=== PATIENT | male | born 1930 | race Caucasian/White ===

== ENCOUNTER 2017-10-25 20:25 | Inpatient (IN) | payer OTHER ==
[~2017-10-25] VITALS: Ht 180.3 cm; Wt 63.5 kg
[2017-10-25] MEDS ORDERED: IBUP400 PO (20:37)
[2017-10-25] MEDS ORDERED: TAMS.4ER PO (20:37)
[2017-10-26 00:58] LABS: BASOPHILS ABSOLUTE AUTO 0.05 K/mm3 (0.00-0.23); BASOPHILS PERCENT AUTO 1 % (0-2); EOSINOPHILS ABSOLUTE AUTO 0.06 K/mm3 (0.00-0.68); EOSINOPHILS PERCENT AUTO 1 % (0-6); Hematocrit 32.8 % (37.0-53.0); Hemoglobin 10.9 g/dL (13.5-17.5); IMMATURE GRAN ABSOLUTE AUTO 0.02 K/mm3 (0.00-0.10); IMMATURE GRAN PERCENT AUTO 0 % (0-1); LYMPHOCYTES ABSOLUTE AUTO 1.42 K/mm3 (0.84-5.20); LYMPHOCYTES PERCENT AUTO 16 % (21-46); MONOCYTES ABSOLUTE AUTO 0.69 K/mm3 (0.16-1.47); MONOCYTES PERCENT AUTO 8 % (4-13); Mean Corpuscular HGB 32.6 pg (26.0-34.0); Mean Corpuscular HGB Conc 33.2 g/dL (31.5-36.5); Mean Corpuscular Volume 98 fL (80-100); Mean Platelet Volume 8.5 fL (9.1-12.4); NEUTROPHILS ABSOLUTE AUTO 6.74 K/mm3 (1.96-9.15); NEUTROPHILS PERCENT AUTO 75 % (41-73); Platelet Count 163 K/mm3 (150-400); RDW Coefficient Variation 12.9 % (11.7-14.2); RDW Standard Deviation 46.2 fL (35.1-46.3); Red Blood Cell Count 3.34 M/mm3 (4.30-5.90); White Blood Cell Count 8.98 K/mm3 (4.00-11.30)
[2017-10-26 01:16] LABS: Albumin, Blood 3.6 g/dL (3.4-5.0); Albumin/Globulin Ratio 1.1 (0.8-1.8); Bilirubin, Total 0.6 mg/dL (0.1-1.0); Bun/Creatinine Ratio 15.9 (12.0-20.0); Calcium, Blood 8.7 mg/dL (8.5-10.1); Creatinine, Blood 1.45 mg/dL (0.60-1.20); Globulin, Blood 3.4 g/dL (2.2-4.0); Potassium, Blood 4.5 mmol/L (3.5-5.5)
[2017-10-26 09:17] LABS: International Normalized Ratio 1.04; Prothrombin Time Results 10.7 Sec (9.7-11.5)
[2017-10-27 04:27] LABS: BASOPHILS ABSOLUTE AUTO 0.02 K/mm3 (0.00-0.23); BASOPHILS PERCENT AUTO 0 % (0-2); EOSINOPHILS ABSOLUTE AUTO 0.17 K/mm3 (0.00-0.68); EOSINOPHILS PERCENT AUTO 3 % (0-6); Hemoglobin 8.7 g/dL (13.5-17.5); IMMATURE GRAN ABSOLUTE AUTO 0.01 K/mm3 (0.00-0.10); IMMATURE GRAN PERCENT AUTO 0 % (0-1); LYMPHOCYTES ABSOLUTE AUTO 0.78 K/mm3 (0.84-5.20); LYMPHOCYTES PERCENT AUTO 14 % (21-46); MONOCYTES ABSOLUTE AUTO 0.38 K/mm3 (0.16-1.47); MONOCYTES PERCENT AUTO 7 % (4-13); Mean Corpuscular HGB 32.5 pg (26.0-34.0); Mean Corpuscular HGB Conc 33.5 g/dL (31.5-36.5); Mean Corpuscular Volume 97 fL (80-100); Mean Platelet Volume 8.8 fL (9.1-12.4); NEUTROPHILS ABSOLUTE AUTO 4.11 K/mm3 (1.96-9.15); NEUTROPHILS PERCENT AUTO 75 % (41-73); Platelet Count 136 K/mm3 (150-400); RDW Standard Deviation 45.7 fL (35.1-46.3); Red Blood Cell Count 2.68 M/mm3 (4.30-5.90); White Blood Cell Count 5.47 K/mm3 (4.00-11.30)
[2017-10-28 04:43] LABS: BASOPHILS ABSOLUTE AUTO 0.03 K/mm3 (0.00-0.23); BASOPHILS PERCENT AUTO 1 % (0-2); EOSINOPHILS ABSOLUTE AUTO 0.23 K/mm3 (0.00-0.68); EOSINOPHILS PERCENT AUTO 4 % (0-6); Hematocrit 25.6 % (37.0-53.0); Hemoglobin 8.4 g/dL (13.5-17.5); IMMATURE GRAN ABSOLUTE AUTO 0.03 K/mm3 (0.00-0.10); IMMATURE GRAN PERCENT AUTO 1 % (0-1); LYMPHOCYTES ABSOLUTE AUTO 1.07 K/mm3 (0.84-5.20); LYMPHOCYTES PERCENT AUTO 20 % (21-46); MONOCYTES ABSOLUTE AUTO 0.41 K/mm3 (0.16-1.47); MONOCYTES PERCENT AUTO 8 % (4-13); Mean Corpuscular HGB 31.3 pg (26.0-34.0); Mean Corpuscular HGB Conc 32.8 g/dL (31.5-36.5); Mean Corpuscular Volume 96 fL (80-100); Mean Platelet Volume 8.8 fL (9.1-12.4); NEUTROPHILS ABSOLUTE AUTO 3.71 K/mm3 (1.96-9.15); NEUTROPHILS PERCENT AUTO 68 % (41-73); Platelet Count 132 K/mm3 (150-400); RDW Coefficient Variation 12.8 % (11.7-14.2); RDW Standard Deviation 44.6 fL (35.1-46.3); Red Blood Cell Count 2.68 M/mm3 (4.30-5.90); White Blood Cell Count 5.48 K/mm3 (4.00-11.30)
[2017-10-28] MEDS ORDERED: CYCL10 PO (11:24)
[2017-10-28] MEDS ORDERED: HYDR1TAB94 PO (11:24)
== END 2017-10-28 14:43 | DRG 482 ==
LOC: ER 20:25 → MEDS 10-26 00:35 → SURS 10-26 00:56 → MEDS 10-26 01:05 → SURS 10-26 14:34
PROVIDERS: Emergency Medicine; Orthopaedic Surgery
PROC: 0QS736Z Reposition Left Upper Femur with Intramedullary Internal Fixation Device, Percutaneous Approach (ICD-10-PCS; principal; 2017-10-26 12:30)
DX: S72.145A Nondisplaced intertrochanteric fracture of left femur, initial encounter for closed fracture (principal); R55 Syncope and collapse; I10 Essential (primary) hypertension; I25.10 Atherosclerotic heart disease of native coronary artery without angina pectoris; N40.1 Benign prostatic hyperplasia with lower urinary tract symptoms; R33.8 Other retention of urine; D64.9 Anemia, unspecified; Z79.899 Other long term (current) drug therapy; W19.XXXA Unspecified fall, initial encounter; Y93.H2 Activity, gardening and landscaping; Z95.1 Presence of aortocoronary bypass graft; Z87.891 Personal history of nicotine dependence; Y92.007 Garden or yard of unspecified non-institutional (private) residence as the place of occurrence of the external cause
CPT/HCPCS: 36415; 71045; 72192; 73501; 73552; 80053; 85025; 85610; 85730; 93005; 93010; 97110; 97116; 97162; 97165; 97530; 97535; 99285; C1713; C1769; G8978; G8979; G8987; G8988; J0690; J1650; J1885; J2250; J3010; J7030; J7120

== ENCOUNTER 2017-11-03 17:00 | Emergency (ER) | payer OTHER ==
[~2017-11-03] VITALS: Ht 180.3 cm; Wt 66.7 kg
[~2017-11-03 17:00] MED LIST: CYCL10 PO; HYDR1TAB94 PO; IBUP400 PO; TAMS.4ER PO
[2017-11-03] MEDS ORDERED: DONE10 PO (17:19)
[2017-11-03 17:32] LABS: BASOPHILS ABSOLUTE AUTO 0.03 K/mm3 (0.00-0.23); BASOPHILS PERCENT AUTO 0 % (0-2); EOSINOPHILS ABSOLUTE AUTO 0.14 K/mm3 (0.00-0.68); EOSINOPHILS PERCENT AUTO 2 % (0-6); Hematocrit 27.5 % (37.0-53.0); IMMATURE GRAN ABSOLUTE AUTO 0.04 K/mm3 (0.00-0.10); IMMATURE GRAN PERCENT AUTO 1 % (0-1); LYMPHOCYTES ABSOLUTE AUTO 1.18 K/mm3 (0.84-5.20); LYMPHOCYTES PERCENT AUTO 16 % (21-46); MONOCYTES ABSOLUTE AUTO 0.61 K/mm3 (0.16-1.47); MONOCYTES PERCENT AUTO 8 % (4-13); Mean Corpuscular HGB 32.3 pg (26.0-34.0); Mean Corpuscular HGB Conc 32.7 g/dL (31.5-36.5); Mean Platelet Volume 8.5 fL (9.1-12.4); NEUTROPHILS PERCENT AUTO 73 % (41-73); Platelet Count 243 K/mm3 (150-400); RDW Coefficient Variation 12.6 % (11.7-14.2); RDW Standard Deviation 45.5 fL (35.1-46.3); Red Blood Cell Count 2.79 M/mm3 (4.30-5.90)
[2017-11-03 17:34] LABS: Mean Corpuscular Volume 99 fL (80-100)
[2017-11-03 17:55] LABS: Albumin, Blood 3.3 g/dL (3.4-5.0); Albumin/Globulin Ratio 0.8 (0.8-1.8); Bilirubin, Total 0.5 mg/dL (0.1-1.0); Bun/Creatinine Ratio 19.6 (12.0-20.0); Calcium, Blood 8.9 mg/dL (8.5-10.1); Creatinine, Blood 1.58 mg/dL (0.60-1.20); Potassium, Blood 4.6 mmol/L (3.5-5.5); Total Protein, Blood 7.3 g/dL (6.4-8.2)
[2017-11-03 19:12] LABS: Source, Urine Clean Catch
[2017-11-03 19:15] LABS: Bilirubin, Urine Neg (Neg); Blood, Urine Neg (Neg); Glucose Qualitative, Urine Neg (Neg); Ketones, Urine Neg (Neg); Leukocyte Esterase, Urine 2+ (Neg); Nitrite, Urine Neg (Neg); Protein, Urine Neg (Neg); Specific Gravity, Urine 1.005 (1.003-1.022); Urobilinogen, Urine NORM (Normal)
[2017-11-03 19:21] LABS: Appearance, Urine Clear (Clear); Color, Urine Yellow (P-Yellow)
[2017-11-03 19:26] LABS: Bacteria Few /hpf; Red Blood Cells, Urine 0-2 /hpf (0-2); Renal Epithelial Few /hpf (0-Rare); Squamous Epithelial Cells Few /hpf (Few); Transitional Epithelial Cells Few /hpf (0-Rare); White Blood Cells, Urine 25-50 /hpf (0-5)
[2017-11-03] MEDS ORDERED: CEPH500 PO (19:38)
== END 2017-11-03 20:00 | disposition home or self-care (01) ==
LOC: ER 17:00
PROVIDERS: Emergency Medicine
DX: F03.90 Unspecified dementia, unspecified severity, without behavioral disturbance, psychotic disturbance, mood disturbance, and anxiety (principal); Z79.899 Other long term (current) drug therapy; D64.9 Anemia, unspecified; I10 Essential (primary) hypertension; Z87.891 Personal history of nicotine dependence
CPT/HCPCS: 36415; 80053; 81000; 81001; 85025; 99284

== ENCOUNTER 2018-04-24 14:04 | Emergency (ER) | payer OTHER ==
[~2018-04-24] VITALS: Ht 180.3 cm; Wt 63.5 kg
[~2018-04-24 14:04] MED LIST changes: +CEPH500 PO; +DONE10 PO
[2018-04-24] MEDS ORDERED: Sulfamethoxazo1 EAC4 PO (14:18)
[2018-04-24] MEDS ORDERED: LEVSOD50 PO (14:18)
[2018-04-24 15:27] LABS: Source, Urine Clean Catch
[2018-04-24 15:32] LABS: BASOPHILS ABSOLUTE AUTO 0.03 K/mm3 (0.00-0.23); BASOPHILS PERCENT AUTO 1 % (0-2); EOSINOPHILS ABSOLUTE AUTO 0.06 K/mm3 (0.00-0.68); EOSINOPHILS PERCENT AUTO 1 % (0-6); Hematocrit 26.8 % (37.0-53.0); Hemoglobin 8.8 g/dL (13.5-17.5); IMMATURE GRAN ABSOLUTE AUTO 0.06 K/mm3 (0.00-0.10); IMMATURE GRAN PERCENT AUTO 1 % (0-1); LYMPHOCYTES ABSOLUTE AUTO 0.93 K/mm3 (0.84-5.20); LYMPHOCYTES PERCENT AUTO 19 % (21-46); MONOCYTES ABSOLUTE AUTO 0.25 K/mm3 (0.16-1.47); MONOCYTES PERCENT AUTO 5 % (4-13); Mean Corpuscular HGB 32.2 pg (26.0-34.0); Mean Corpuscular HGB Conc 32.8 g/dL (31.5-36.5); Mean Corpuscular Volume 98 fL (80-100); NEUTROPHILS ABSOLUTE AUTO 3.49 K/mm3 (1.96-9.15); NEUTROPHILS PERCENT AUTO 73 % (41-73); Platelet Count 186 K/mm3 (150-400); RDW Coefficient Variation 13.7 % (11.7-14.2); Red Blood Cell Count 2.73 M/mm3 (4.30-5.90); White Blood Cell Count 4.82 K/mm3 (4.00-11.30)
[2018-04-24 15:36] LABS: Appearance, Urine Hazy (Clear); Bilirubin, Urine Neg (Neg); Blood, Urine 4+ (Neg); Color, Urine Yellow (P-Yellow); Glucose Qualitative, Urine Neg (Neg); Ketones, Urine Neg (Neg); Leukocyte Esterase, Urine 3+ (Neg); Nitrite, Urine Neg (Neg); Protein, Urine 1+ (Neg); Urobilinogen, Urine NORM (Normal)
[2018-04-24 15:44] LABS: Red Blood Cells, Urine TNTC /hpf (0-2); White Blood Cells, Urine TNTC /hpf (0-5)
[2018-04-24 15:45] LABS: Bacteria Many /hpf; Squamous Epithelial Cells Rare /hpf (Few)
[2018-04-24 15:53] LABS: Albumin, Blood 2.4 g/dL (3.4-5.0); Albumin/Globulin Ratio 0.6 (0.8-1.8); Bilirubin, Total 0.3 mg/dL (0.1-1.0); Bun/Creatinine Ratio 14.9 (12.0-20.0); Calcium, Blood 8.3 mg/dL (8.5-10.1); Creatinine, Blood 1.68 mg/dL (0.60-1.20); Globulin, Blood 3.8 g/dL (2.2-4.0); Potassium, Blood 4.7 mmol/L (3.5-5.5); Total Protein, Blood 6.2 g/dL (6.4-8.2)
[2018-04-24] MEDS ORDERED: CEFD300 PO (16:37)
== END 2018-04-24 17:33 | disposition home or self-care (01) ==
LOC: ER 14:04
PROVIDERS: Emergency Medicine
DX: N39.0 Urinary tract infection, site not specified (principal); E86.0 Dehydration; D64.9 Anemia, unspecified; I10 Essential (primary) hypertension; Z95.1 Presence of aortocoronary bypass graft; Z79.899 Other long term (current) drug therapy; Z87.891 Personal history of nicotine dependence
CPT/HCPCS: 80053; 81001; 85025; 87086; 96361; 96365; 99285-25; J0696; J7120

== ENCOUNTER 2018-04-27 04:35 | Observation (INO) | payer OTHER ==
[~2018-04-27] VITALS: Ht 180.3 cm; Wt 53.5 kg
[~2018-04-27 04:35] MED LIST changes: +CEFD300 PO; +LEVSOD50 PO; +Sulfamethoxazo1 EAC4 PO
[2018-04-27 05:06] LABS: BASOPHILS ABSOLUTE AUTO 0.11 K/mm3 (0.00-0.23); BASOPHILS PERCENT AUTO 1 % (0-2); EOSINOPHILS ABSOLUTE AUTO 0.23 K/mm3 (0.00-0.68); EOSINOPHILS PERCENT AUTO 2 % (0-6); Hematocrit 30.4 % (37.0-53.0); Hemoglobin 9.7 g/dL (13.5-17.5); IMMATURE GRAN ABSOLUTE AUTO 0.07 K/mm3 (0.00-0.10); IMMATURE GRAN PERCENT AUTO 1 % (0-1); LYMPHOCYTES ABSOLUTE AUTO 1.95 K/mm3 (0.84-5.20); LYMPHOCYTES PERCENT AUTO 20 % (21-46); MONOCYTES ABSOLUTE AUTO 0.47 K/mm3 (0.16-1.47); MONOCYTES PERCENT AUTO 5 % (4-13); Mean Corpuscular HGB Conc 31.9 g/dL (31.5-36.5); Mean Corpuscular Volume 100 fL (80-100); NEUTROPHILS PERCENT AUTO 71 % (41-73); Platelet Count 224 K/mm3 (150-400); RDW Coefficient Variation 13.7 % (11.7-14.2); Red Blood Cell Count 3.03 M/mm3 (4.30-5.90); White Blood Cell Count 9.83 K/mm3 (4.00-11.30)
[2018-04-27 05:21] LABS: Source, Urine Clean Catch
[2018-04-27 05:22] LABS: Albumin, Blood 2.9 g/dL (3.4-5.0); Albumin/Globulin Ratio 0.7 (0.8-1.8); Bilirubin, Total 0.4 mg/dL (0.1-1.0); Bun/Creatinine Ratio 13.7 (12.0-20.0); Calcium, Blood 8.8 mg/dL (8.5-10.1); Creatinine, Blood 1.9 mg/dL (0.60-1.20); Globulin, Blood 4.2 g/dL (2.2-4.0); Potassium, Blood 3.9 mmol/L (3.5-5.5); Total Protein, Blood 7.1 g/dL (6.4-8.2)
[2018-04-27 05:28] LABS: Bilirubin, Urine Neg (Neg); Blood, Urine 3+ (Neg); Glucose Qualitative, Urine Neg (Neg); Ketones, Urine Neg (Neg); Leukocyte Esterase, Urine 3+ (Neg); Nitrite, Urine Neg (Neg); Protein, Urine 1+ (Neg); Specific Gravity, Urine 1.005 (1.003-1.022); Urobilinogen, Urine NORM (Normal)
[2018-04-27 05:35] LABS: Appearance, Urine Hazy (Clear); Color, Urine Yellow (P-Yellow)
[2018-04-27 05:37] LABS: White Blood Cells, Urine TNTC /hpf (0-5)
[2018-04-27 05:38] LABS: Bacteria Mod /hpf; Squamous Epithelial Cells Few /hpf (Few)
[2018-04-28 03:40] LABS: BASOPHILS ABSOLUTE AUTO 0.09 K/mm3 (0.00-0.23); BASOPHILS PERCENT AUTO 1 % (0-2); EOSINOPHILS ABSOLUTE AUTO 0.39 K/mm3 (0.00-0.68); EOSINOPHILS PERCENT AUTO 6 % (0-6); Hematocrit 27.4 % (37.0-53.0); Hemoglobin 8.7 g/dL (13.5-17.5); IMMATURE GRAN ABSOLUTE AUTO 0.02 K/mm3 (0.00-0.10); IMMATURE GRAN PERCENT AUTO 0 % (0-1); LYMPHOCYTES ABSOLUTE AUTO 1.81 K/mm3 (0.84-5.20); LYMPHOCYTES PERCENT AUTO 27 % (21-46); MONOCYTES ABSOLUTE AUTO 0.44 K/mm3 (0.16-1.47); MONOCYTES PERCENT AUTO 7 % (4-13); Mean Corpuscular HGB Conc 31.8 g/dL (31.5-36.5); Mean Corpuscular Volume 101 fL (80-100); Mean Platelet Volume 8.5 fL (9.1-12.4); NEUTROPHILS ABSOLUTE AUTO 3.97 K/mm3 (1.96-9.15); NEUTROPHILS PERCENT AUTO 59 % (41-73); Platelet Count 183 K/mm3 (150-400); RDW Standard Deviation 50.8 fL (35.1-46.3); Red Blood Cell Count 2.72 M/mm3 (4.30-5.90); White Blood Cell Count 6.72 K/mm3 (4.00-11.30)
[2018-04-28 04:01] LABS: Albumin, Blood 2.2 g/dL (3.4-5.0); Albumin/Globulin Ratio 0.6 (0.8-1.8); Bilirubin, Total 0.4 mg/dL (0.1-1.0); Bun/Creatinine Ratio 13.5 (12.0-20.0); Calcium, Blood 7.9 mg/dL (8.5-10.1); Creatinine, Blood 1.55 mg/dL (0.60-1.20); Globulin, Blood 3.5 g/dL (2.2-4.0); Potassium, Blood 4.7 mmol/L (3.5-5.5); Total Protein, Blood 5.7 g/dL (6.4-8.2)
[2018-04-29 05:07] LABS: Bun/Creatinine Ratio 20.8 (12.0-20.0); Creatinine, Blood 1.68 mg/dL (0.60-1.20); Potassium, Blood 5.6 mmol/L (3.5-5.5)
[2018-04-30 08:12] LABS: Bun/Creatinine Ratio 27.3 (12.0-20.0); Creatinine, Blood 1.39 mg/dL (0.60-1.20); Potassium, Blood 4.8 mmol/L (3.5-5.5)
== END 2018-05-02 15:06 | disposition home health service (06) ==
LOC: ER 04:35 → ICUW 04:36 → ER 04:36 → ICUW 06:57 → ER 06:57 → MEDS 06:57 → ICUE 06:57 → MEDS 07:49 → ICUW 07:49 → ICUE 08:15 → MEDS 08:15 → ICUE 10:00 → MEDS 04-28 11:05 → ICUE 04-28 11:06 → MEDS 04-28 11:07
PROVIDERS: Emergency Medicine; Hospitalist; Internal Medicine
DX: G92 Toxic encephalopathy (principal); N39.0 Urinary tract infection, site not specified; F03.90 Unspecified dementia, unspecified severity, without behavioral disturbance, psychotic disturbance, mood disturbance, and anxiety; N17.9 Acute kidney failure, unspecified; I25.10 Atherosclerotic heart disease of native coronary artery without angina pectoris; D64.9 Anemia, unspecified; E03.9 Hypothyroidism, unspecified; E86.0 Dehydration; N18.3 Chronic kidney disease, stage 3 (moderate); R64 Cachexia; N40.0 Benign prostatic hyperplasia without lower urinary tract symptoms; T68.XXXA Hypothermia, initial encounter; E46 Unspecified protein-calorie malnutrition; L89.159 Pressure ulcer of sacral region, unspecified stage; E87.5 Hyperkalemia; R53.1 Weakness; Z87.891 Personal history of nicotine dependence; Z79.899 Other long term (current) drug therapy
CPT/HCPCS: 36415; 71045; 80048; 80053; 81001; 82550; 85025; 85027; 87086; 96360; 96361; 96365; 96372; 96376; 97116; 97162; 97165; 97530; 97535; 99285-25; G0378; G8978; G8979; G8987; G8988; J0696; J1650; J7030

== ENCOUNTER 2018-05-06 08:36 | Emergency (ER) | payer OTHER ==
[~2018-05-06] VITALS: Ht 170.2 cm; Wt 56.7 kg
[2018-05-06 09:06] LABS: Source, Urine Clean Catch
[2018-05-06 09:21] LABS: Bilirubin, Urine Neg (Neg); Blood, Urine Neg (Neg); Glucose Qualitative, Urine Neg (Neg); Ketones, Urine Neg (Neg); Leukocyte Esterase, Urine 2+ (Neg); Nitrite, Urine Neg (Neg); Protein, Urine 1+ (Neg); Specific Gravity, Urine 1.005 (1.003-1.022); Urobilinogen, Urine NORM (Normal)
[2018-05-06 09:37] LABS: Appearance, Urine Hazy (Clear); Color, Urine Yellow (P-Yellow)
[2018-05-06 09:40] LABS: Red Blood Cells, Urine 0-2 /hpf (0-2)
[2018-05-06 09:41] LABS: Bacteria Rare /hpf; Squamous Epithelial Cells Rare /hpf (Few)
[2018-05-06 09:42] LABS: Transitional Epithelial Cells Few /hpf (0-Rare)
[2018-05-06 10:00] LABS: Calcium, Ionized (POC) 1.26 mmol/L (1.10-1.46); Chloride (POC) 105 mmol/L (98-108); Creatinine (POC) 1.4 mg/dL (0.8-1.3); Glucose (ISTAT POC) 104 mg/dL (70-99); Hemoglobin (POC) 8.5 g/dL (13.5-17.5); Potassium (POC) 4.1 mmol/L (3.5-5.5); Sodium (POC) 142 mmol/L (135-148); Total CO2 (POC) 27 mmol/L (21-32)
== END 2018-05-06 13:00 | disposition home or self-care (01) ==
LOC: ER 08:36
PROVIDERS: Physician Assistant
DX: M54.5 Low back pain (principal); Z79.899 Other long term (current) drug therapy; D64.9 Anemia, unspecified; I10 Essential (primary) hypertension; F03.90 Unspecified dementia, unspecified severity, without behavioral disturbance, psychotic disturbance, mood disturbance, and anxiety; E03.9 Hypothyroidism, unspecified; Z87.891 Personal history of nicotine dependence
CPT/HCPCS: 36415; 72100; 80047; 81001; 85014; 87077; 87086; 87186; 99284-25

== ENCOUNTER 2018-05-11 08:02 | Observation (INO) | payer OTHER ==
[~2018-05-11] VITALS: Ht 180.3 cm; Wt 54.4 kg
[2018-05-11 09:04] LABS: Source, Urine Clean Catch
[2018-05-11 09:08] LABS: Bilirubin, Urine Neg (Neg); Blood, Urine Neg (Neg); Glucose Qualitative, Urine Neg (Neg); Ketones, Urine Neg (Neg); Leukocyte Esterase, Urine 3+ (Neg); Nitrite, Urine Neg (Neg); Protein, Urine 1+ (Neg); Specific Gravity, Urine 1.015 (1.003-1.022); Urobilinogen, Urine NORM (Normal)
[2018-05-11 09:16] LABS: Appearance, Urine Hazy (Clear); Color, Urine Yellow (P-Yellow)
[2018-05-11 09:17] LABS: Bacteria Rare /hpf; Red Blood Cells, Urine Not Seen /hpf (0-2); Squamous Epithelial Cells Few /hpf (Few); Transitional Epithelial Cells Few /hpf (0-Rare); White Blood Cells, Urine 25-50 /hpf (0-5)
[2018-05-11 09:58] LABS: BASOPHILS ABSOLUTE AUTO 0.04 K/mm3 (0.00-0.23); BASOPHILS PERCENT AUTO 1 % (0-2); EOSINOPHILS ABSOLUTE AUTO 0.19 K/mm3 (0.00-0.68); EOSINOPHILS PERCENT AUTO 5 % (0-6); Hemoglobin 9.2 g/dL (13.5-17.5); IMMATURE GRAN ABSOLUTE AUTO 0.01 K/mm3 (0.00-0.10); IMMATURE GRAN PERCENT AUTO 0 % (0-1); LYMPHOCYTES PERCENT AUTO 26 % (21-46); MONOCYTES ABSOLUTE AUTO 0.35 K/mm3 (0.16-1.47); MONOCYTES PERCENT AUTO 8 % (4-13); Mean Corpuscular HGB 32.2 pg (26.0-34.0); Mean Corpuscular HGB Conc 31.7 g/dL (31.5-36.5); Mean Corpuscular Volume 101 fL (80-100); Mean Platelet Volume 8.3 fL (9.1-12.4); NEUTROPHILS ABSOLUTE AUTO 2.49 K/mm3 (1.96-9.15); NEUTROPHILS PERCENT AUTO 60 % (41-73); Platelet Count 225 K/mm3 (150-400); RDW Standard Deviation 51.5 fL (35.1-46.3); Red Blood Cell Count 2.86 M/mm3 (4.30-5.90); White Blood Cell Count 4.18 K/mm3 (4.00-11.30)
[2018-05-11 10:26] LABS: Alanine Aminotransfer (ALT/SGP 15 U/L (12-78); Albumin, Blood 2.6 g/dL (3.4-5.0); Albumin/Globulin Ratio 0.6 (0.8-1.8); Alk Phos 80 U/L (50-136); Anion Gap 6 mmol/L (6-16); Aspartate Aminotrans (AST/SGOT 13 U/L (12-37); Bilirubin, Total 0.2 mg/dL (0.1-1.0); Blood Urea Nitrogen 26 mg/dL (8-24); Bun/Creatinine Ratio 21.8 (12.0-20.0); CO2, Blood 27 mmol/L (21-32); Calcium, Blood 8.2 mg/dL (8.5-10.1); Chloride, Blood 108 mmol/L (98-108); Creatinine, Blood 1.19 mg/dL (0.60-1.20); Globulin, Blood 4.1 g/dL (2.2-4.0); Glomerular Filtration Rate >60 (60-); Glucose, Blood 76 mg/dL (70-99); Potassium, Blood 4.3 mmol/L (3.5-5.5); Sodium, Blood 141 mmol/L (136-145); Total Protein, Blood 6.7 g/dL (6.4-8.2)
[2018-05-11] MEDS ORDERED: Doxycycline Hy100 MG PO (11:56)
[2018-05-11] MEDS ORDERED: NITR100CA PO (16:12)
[2018-05-11] MEDS ORDERED: CEFD300 PO (16:13)
--- NOTE | 2018-05-11 17:08 | NUR ---
SHIFT SUMMARY PATIENT ARRIVED VIA STRETCHER. 2 PERSON MAX ASSIST FOR TRANSFER. ABLE TO MOVE SELF IN BED. GIVEN FLU VACCINE AND LOVENOX, TOLERATED THIS WELL. NEW IV PLACED BY CHARGE, RN. NO ACUTE CHANGES, CURRENTLY SLEEPING.
--- NOTE | 2018-05-12 06:02 | NUR ---
SHIFT SUMMARY: PATIENT HAS NO COMPLAINTS THIS SHIFT, VS ARE STABLE. IMC. OF A LARGE LOOSE STOOL, ALSO INC OF URINE AT TIMES BUT WILL ASK FOR URINAL TO VOID. ABLE TO MAKE NEEDS KNOWN, BED ALARM IS ON FOR SAFETY.
--- NOTE | 2018-05-12 15:15 | NUR ---
SHIFT SUMMARY PATIENT AMBULATED WITH THERAPY. HE IS AT HIS BASELINE. PATIENT IS CONTEMPLATING GOING TO [facility], HE THINKS AT THIS TIME IN HIS LIFE IT WOULD BE A GOOD DECISION. DR. BALTAZAR IS IN AGREEANCE WITH AN LONGTERM AND ENCOURAGING OF THIS DECISION.
--- NOTE | 2018-05-13 18:35 | NUR ---
PT VERY HARD OF HEARING. SOME C/O GENERAL PAIN MEDICATED PER EMAR. STATES WAITING FOR URINE CX RESULTS BEFORE DISCHARGE. PLAN WILL BE HOME HEALTH FOR DISCHARGE. WILL TRY TO GET INCONTACT AND/OR PASS TO ONCOMING NURSE IF UNABLE TO REACH AGAIN. INCONTINENT. CALL LIGHT IN REACH.
--- NOTE | 2018-05-14 04:44 | NUR ---
SHIFT SUMMARY NO APPARENT ACUTE CHANGES NOTED SO FAR THIS SHIFT. PT WAS INCONTIENT OF STOOL THIS SHIFT AND NOTED TO HAVE SCOOPED THE STOOL OUT OF ATTENDS AND SMEARED ON SELF AND ALL OVER BED. PT SEEMS ALERT AND ORIENTED TO SELF AND WITH SOME CONFUSION. PT ATTEMPTS TO SELF TRANSFER. BED ALARM FOR SAFETY. PT APPEARS TO BE SLEEPING COMFORTABLY AT THIS TIME WITH NO APPARENT SIGNS OF ACUTE DISTRESS. FREQUENT VISUAL CHECKS IT DOES NOT APPEAR THAT PT USES CALL LIGHT APPROPRIATELY. CALL LIGHT IN REACH.
--- NOTE | 2018-05-14 14:43 | NUR ---
PT DISCHARGED HOME WITH [facility] INSPECT[facility]. ESCORTED VIA WHEELCHAIR BY [facility]. ALL BELONGINGS WITH PATIENTS. DISCHARGE INTRUCTIONS EXPLAINED TO PT AND AMPOULE INSPECTOR. ALL QUESTIONS ANSWERED
== END 2018-05-14 12:18 | disposition home or self-care (01) ==
LOC: ER 08:02 → MEDS 08:03
PROVIDERS: Emergency Medicine; ADMIT Internal Medicine
DX: N39.0 Urinary tract infection, site not specified (principal); G93.41 Metabolic encephalopathy; F03.90 Unspecified dementia, unspecified severity, without behavioral disturbance, psychotic disturbance, mood disturbance, and anxiety; I25.10 Atherosclerotic heart disease of native coronary artery without angina pectoris; L89.159 Pressure ulcer of sacral region, unspecified stage; D63.8 Anemia in other chronic diseases classified elsewhere; Z79.899 Other long term (current) drug therapy; Z23 Encounter for immunization
CPT/HCPCS: 36415; 80053; 81001; 84443; 85025; 87077; 87086; 87186; 90686; 96360; 96372; 97116; 97162; 97166; 97530; 99285-25; G0008; G0378; G0515; J1650; J7030

== ENCOUNTER → 2018-08-29 | Outpatient (CLI) | payer OTHER ==
[~2018-08-29] MED LIST changes: +ACET325 PO; +CIPR500 PO; +Doxycycline Hy100 MG PO; +NITR100CA PO; +TUMS500 MG PO
[2018-08-29 14:17] LABS: Source, Urine Clean Catch
[2018-08-29 14:22] LABS: Appearance, Urine Turbid (Clear); Bilirubin, Urine Neg (Neg); Blood, Urine 4+ (Neg); Color, Urine Yellow (P-Yellow); Glucose Qualitative, Urine Neg (Neg); Ketones, Urine Neg (Neg); Leukocyte Esterase, Urine 3+ (Neg); Nitrite, Urine Neg (Neg); Protein, Urine 3+ (Neg); Specific Gravity, Urine 1.015 (1.003-1.022); Urobilinogen, Urine NORM (Normal)
[2018-08-29 14:31] LABS: White Blood Cells, Urine 50-100 /hpf (0-5)
[2018-08-29 14:32] LABS: Bacteria Mod /hpf; Red Blood Cells, Urine 0-2 /hpf (0-2); Squamous Epithelial Cells Rare /hpf (Few)
== END | disposition home or self-care (01) ==
LOC: LAB 14:15 → LAB SHORT 14:15
PROVIDERS: Family Medicine
DX: N39.0 Urinary tract infection, site not specified (principal)
CPT/HCPCS: 81001; 87077; 87086; 87186

== ENCOUNTER 2018-09-06 17:41 | Observation (INO) | payer OTHER ==
[~2018-09-06] VITALS: Ht 180.3 cm; Wt 52.3 kg
[~2018-09-06 17:41] MED LIST changes: -ACET325 PO; -CIPR500 PO; -LEVSOD50 PO; -TAMS.4ER PO; -TUMS500 MG PO
[2018-09-06 18:21] LABS: Source, Urine Catheter
[2018-09-06 18:32] LABS: Appearance, Urine Hazy (Clear); Bilirubin, Urine Neg (Neg); Blood, Urine 4+ (Neg); Color, Urine Yellow (P-Yellow); Glucose Qualitative, Urine Neg (Neg); Ketones, Urine Neg (Neg); Leukocyte Esterase, Urine 3+ (Neg); Nitrite, Urine Neg (Neg); Protein, Urine 2+ (Neg); Specific Gravity, Urine 1.005 (1.003-1.022); Urobilinogen, Urine NORM (Normal)
[2018-09-06 18:48] LABS: Hematocrit 29.5 % (37.0-53.0); Hemoglobin 9.4 g/dL (13.5-17.5); Mean Corpuscular HGB 31.3 pg (26.0-34.0); Mean Corpuscular HGB Conc 31.9 g/dL (31.5-36.5); Mean Corpuscular Volume 98 fL (80-100); Mean Platelet Volume 8.4 fL (9.1-12.4); Platelet Count 327 K/mm3 (150-400); RDW Coefficient Variation 12.2 % (11.7-14.2); RDW Standard Deviation 43.9 fL (35.1-46.3); White Blood Cell Count 8.34 K/mm3 (4.00-11.30)
[2018-09-06 18:57] LABS: Alanine Aminotransfer (ALT/SGP 13 U/L (12-78); Albumin, Blood 2.3 g/dL (3.4-5.0); Albumin/Globulin Ratio 0.5 (0.8-1.8); Alk Phos 84 U/L (50-136); Anion Gap 8 mmol/L (6-16); Aspartate Aminotrans (AST/SGOT 16 U/L (12-37); Bilirubin, Total 0.5 mg/dL (0.1-1.0); Blood Urea Nitrogen 33 mg/dL (8-24); Bun/Creatinine Ratio 16.3 (12.0-20.0); CO2, Blood 24 mmol/L (21-32); Calcium, Blood 8.6 mg/dL (8.5-10.1); Chloride, Blood 102 mmol/L (98-108); Creatinine, Blood 2.02 mg/dL (0.60-1.20); Globulin, Blood 4.8 g/dL (2.2-4.0); Glomerular Filtration Rate 33 (60-); Glucose, Blood 148 mg/dL (70-99); Magnesium, Blood 2.3 mg/dL (1.6-2.4); Potassium, Blood 4.3 mmol/L (3.5-5.5); Sodium, Blood 134 mmol/L (136-145); Total Protein, Blood 7.1 g/dL (6.4-8.2); Troponin I <0.015 ng/mL (0.000-0.040)
[2018-09-06 19:23] LABS: Squamous Epithelial Cells Not Seen /hpf (Few); White Blood Cells, Urine TNTC /hpf (0-5)
[2018-09-06 19:24] LABS: Bacteria Mod /hpf
[2018-09-06 19:35] LABS: BASOPHILS PERCENT MAN 0 % (0-2); EOSINOPHILS ABSOLUTE MAN 0.16 K/mm3 (0.00-0.68); EOSINOPHILS PERCENT MAN 2 % (0-6); LYMPHOCYTES ABSOLUTE MAN 0.58 K/mm3 (0.84-5.20); LYMPHOCYTES PERCENT MAN 7 % (21-46); MONOCYTES ABSOLUTE MAN 0.41 K/mm3 (0.16-1.47); MONOCYTES PERCENT MAN 5 % (4-13); MYELOCYTE ABSOLUTE MAN 0.08 K/mm3 (0.00-0.00); MYELOCYTE PERCENT MAN 1 % (0-0); NEUTROPHILS ABSOLUTE MAN 7.08 K/mm3 (1.96-9.15); SEG NEUTROPHILS PERCENT MAN 85 % (41-73); TOTAL CELLS COUNTED 100
[2018-09-06] MEDS ORDERED: LEVSOD50 PO (19:51)
[2018-09-06] MEDS ORDERED: TAMS.4ER PO (19:51)
[2018-09-06] MEDS ORDERED: CIPR500 PO (19:52)
[2018-09-06] MEDS ORDERED: ACET325 PO (19:53)
[2018-09-06] MEDS ORDERED: TUMS500 MG PO (19:55)
[2018-09-06 20:49] LABS: Creatinine, Urine Random 41.3 mg/dL (27.00-270.00)
[2018-09-07 05:01] LABS: Hemoglobin 8.8 g/dL (13.5-17.5); Mean Corpuscular HGB 31.5 pg (26.0-34.0); Mean Corpuscular HGB Conc 31.4 g/dL (31.5-36.5); Mean Corpuscular Volume 100 fL (80-100); Mean Platelet Volume 8.6 fL (9.1-12.4); Platelet Count 288 K/mm3 (150-400); RDW Coefficient Variation 12.1 % (11.7-14.2); RDW Standard Deviation 44.6 fL (35.1-46.3); Red Blood Cell Count 2.79 M/mm3 (4.30-5.90); White Blood Cell Count 9.16 K/mm3 (4.00-11.30)
[2018-09-07 05:26] LABS: Bun/Creatinine Ratio 16.7 (12.0-20.0); Calcium, Blood 8.6 mg/dL (8.5-10.1); Creatinine, Blood 2.04 mg/dL (0.60-1.20); Magnesium, Blood 2.4 mg/dL (1.6-2.4); Potassium, Blood 4.3 mmol/L (3.5-5.5)
--- NOTE | 2018-09-07 05:49 | NUR ---
SHIFT SUMMARY PT ADMITTED FOR ACUTE KIDNEY INJURY SUPERIMPOSED ON CHRONIC KIDNEY DISEASE. PT ALERT TO SELF AND PLACE UPON ADMIT, BUT DURING THE NIGHT CONFUSED TO WHERE HE IS. PT REMINDED OF WHERE HE IS AT T/O NIGHT. PT INCONTINENT OF URINE. PT CACHETIC IN APPEARANCE. HAS IVF'S INFUSING WITHOUT DIFFICULTY. TELEMETRY ON SHOWS NSR AT 63. PT DENIES PAIN. WILL CONTINUE TO MONITOR.
--- NOTE | 2018-09-07 15:57 | NUR ---
SUMMARY PT WAS CONFUSED THIS AM @ ONSET OF SHIFT, GETTING OUT OF BED W/O CALLING FOR ASSIST, ALARMS SOUNDING. ON ENTRY TO ROOM PT WAS ATTEMPTING TO PULL OUT IV, PULLING @ TELE & DISROBING. REDIRECTED & REORIENTED, REASSURANCE PROVIDED. HE HAS BEEN CALM SINCE & NOT PULLING @ LINES. HE CONTINUES FORGETFUL, [place]AST[place], A/O X1-2. DX ACUTE KIDNEY INJURY W UTI, GFR 33. IV ANTIBX ARE ORDERED, WBC WNL. NS INFUSING @ 75 ML/HR. PHY THER IN FOR EVAL/TX, 1 ASSIST TO CHAIR, UNSTEADY GAIT, CONTINUE ALARMS. VSS.
[2018-09-08 04:46] LABS: BASOPHILS ABSOLUTE AUTO 0.04 K/mm3 (0.00-0.23); BASOPHILS PERCENT AUTO 1 % (0-2); EOSINOPHILS ABSOLUTE AUTO 0.14 K/mm3 (0.00-0.68); EOSINOPHILS PERCENT AUTO 2 % (0-6); Hematocrit 26.1 % (37.0-53.0); Hemoglobin 8.3 g/dL (13.5-17.5); IMMATURE GRAN ABSOLUTE AUTO 0.04 K/mm3 (0.00-0.10); IMMATURE GRAN PERCENT AUTO 1 % (0-1); LYMPHOCYTES ABSOLUTE AUTO 1.33 K/mm3 (0.84-5.20); LYMPHOCYTES PERCENT AUTO 18 % (21-46); MONOCYTES PERCENT AUTO 5 % (4-13); Mean Corpuscular HGB 31.1 pg (26.0-34.0); Mean Corpuscular HGB Conc 31.8 g/dL (31.5-36.5); Mean Corpuscular Volume 98 fL (80-100); Mean Platelet Volume 8.3 fL (9.1-12.4); NEUTROPHILS ABSOLUTE AUTO 5.47 K/mm3 (1.96-9.15); NEUTROPHILS PERCENT AUTO 74 % (41-73); Platelet Count 308 K/mm3 (150-400); RDW Coefficient Variation 12.2 % (11.7-14.2); RDW Standard Deviation 43.3 fL (35.1-46.3); Red Blood Cell Count 2.67 M/mm3 (4.30-5.90); White Blood Cell Count 7.42 K/mm3 (4.00-11.30)
[2018-09-08 05:02] LABS: Calcium, Blood 8.4 mg/dL (8.5-10.1); Creatinine, Blood 1.94 mg/dL (0.60-1.20); Potassium, Blood 4.5 mmol/L (3.5-5.5)
--- NOTE | 2018-09-08 05:43 | NUR ---
SHIFT SUMMARY PT SLEPT WELL DURING THE NIGHT, 2ND LITER OF IVF'S INFUSED. IV SALINE LOCKED. PT INCONTINENT DURING THE NIGHT. NO ACUTE EVENTS OR CHANGES NOTED DURING THE NIGHT.
--- NOTE | 2018-09-08 16:23 | NUR ---
SUMMARY PT CONTINUES WEAK/FATIGUED HOWEVER STATE FEELING IMPROVED, MORE ENERGY/STRONGER THAN PREVIOUS DAY. MENTATION ALSO IMPROVED, HE IS ABLE TO STATE WHERE HE IS & WHY HE IS HERE. HE HAS BEEN CALM, FOLLOWING DIRECTION, COOPERATIVE. NO PULLING @ LINES, DISROBING OR ATTEMPTING OOB W/O ASSIST. PARTICIPATED W PT/OT, UP 1 ASSIST TO CHAIR, GAIT CONTINUES VERY UNSTEADY, HIGH FALL RISK. DAUGHTER MARTHA WAS HERE TODAY TO VISIT, ABLE TO SPEAK WITH BASKET PATCHER R/T TX & D/C PLAN. DR ST IN THIS AM FOR ASSESSMENT. START IV LR @ 75 ML/HR. GFR IMPROVED A LITTLE @ 35 THIS AM. IV ANTIBX CONTINUE. VSS.
[2018-09-09 05:01] LABS: BASOPHILS ABSOLUTE AUTO 0.05 K/mm3 (0.00-0.23); BASOPHILS PERCENT AUTO 1 % (0-2); EOSINOPHILS ABSOLUTE AUTO 0.16 K/mm3 (0.00-0.68); EOSINOPHILS PERCENT AUTO 2 % (0-6); Hematocrit 25.6 % (37.0-53.0); Hemoglobin 8.3 g/dL (13.5-17.5); IMMATURE GRAN ABSOLUTE AUTO 0.04 K/mm3 (0.00-0.10); IMMATURE GRAN PERCENT AUTO 1 % (0-1); LYMPHOCYTES ABSOLUTE AUTO 1.29 K/mm3 (0.84-5.20); LYMPHOCYTES PERCENT AUTO 19 % (21-46); MONOCYTES ABSOLUTE AUTO 0.47 K/mm3 (0.16-1.47); MONOCYTES PERCENT AUTO 7 % (4-13); Mean Corpuscular HGB 31.3 pg (26.0-34.0); Mean Corpuscular HGB Conc 32.4 g/dL (31.5-36.5); Mean Corpuscular Volume 97 fL (80-100); Mean Platelet Volume 9.4 fL (9.1-12.4); NEUTROPHILS ABSOLUTE AUTO 4.79 K/mm3 (1.96-9.15); NEUTROPHILS PERCENT AUTO 70 % (41-73); Platelet Count 221 K/mm3 (150-400); RDW Coefficient Variation 12.4 % (11.7-14.2); RDW Standard Deviation 43.1 fL (35.1-46.3); Red Blood Cell Count 2.65 M/mm3 (4.30-5.90)
[2018-09-09 05:11] LABS: Bun/Creatinine Ratio 23.3 (12.0-20.0); Calcium, Blood 8.1 mg/dL (8.5-10.1); Creatinine, Blood 1.76 mg/dL (0.60-1.20); Magnesium, Blood 2.2 mg/dL (1.6-2.4); Potassium, Blood 4.7 mmol/L (3.5-5.5)
--- NOTE | 2018-09-09 06:28 | NUR ---
NOC SHIFT SUMMARY PT PLEASANT AND COOPERATIVE WITH CARE THIS NIGHT. MENTIONED BY PREVIOUS NURSE HIS LEVEL OF ORIENTATION IS GOOD AAOX3. HIS RESP ARE EVEN AN UNLABORED. WAS CONTINENT IN THE EVENING BUT INCONTINENT OF URINE IN THE NIGHT. NO ACUTE CHANGES NOTED. PT APPEARS IN NO ACUTE DISTRESS. WILL CONTINUE TO MONITOR.
--- NOTE | 2018-09-09 18:07 | NUR ---
SHIFT SUMMARY PT. REMAINS ALERT WHEN AROUSED. HE IS ORIENTED TO SELF BUT AT ONE POINT HE POINTED TO A CLOSET IN HIS ROOM SAYING THAT HE HAD SHIRTS "IN THERE". HE HAS LITTLE INTEREST IN MEALS--PREFERS ENSURE DRINKS. HE HAS SPENT MOST OF THE DAY RESTING-ONLY UP FOR A SHORT TIME FOR BREAKFAST AND LUNCH. HE IS ABLE TO HELP WITH TURING AND CHANGING ATTENDS. HE IS IN NO DISTRESS AND DENIES PAIN.
--- NOTE | 2018-09-09 18:29 | NUR ---
STUDENT NURSE CARING FOR PT PLEASE REFER TO STUDENT NOTED FOR SHIFT SUMMARY.
--- NOTE | 2018-09-10 05:51 | NUR ---
NOC SHIFT SUMMARY PT IS PLEASANT AND COOPERATIVE WITH CARE. HE HAS SPENT MOST OF THIS NIGHT SLEEPING. CONTINUES TO BE INCONTINENT OF URINE. CONTINUES TO BE CONFUSED. NO ACUTE CHANGES NOTED THIS SHIFT. PT APPEARS IN NO ACUTE DISTRESS. WILL CONTINUE TO MONITOR.
--- NOTE | 2018-09-10 17:56 | NUR ---
AOX3 AND PLEASANTLY CONFUSED. PT HAS BEEN IN BED SLEEPING ALL DAY. PT DID EAT SOME OF HIS BREAKFAST AND WAKES UP FOR LITTLE STENTS. PT COOPERATIVE OF ALL CARE. NO DISTRESS NOTED WILL CONTINUE TO MONITOR.
[2018-09-11 06:05] LABS: Bun/Creatinine Ratio 23.6 (12.0-20.0); Calcium, Blood 8.9 mg/dL (8.5-10.1); Creatinine, Blood 1.95 mg/dL (0.60-1.20); Free Thyroxine 1.29 ng/dL (0.70-1.60); Potassium, Blood 4.4 mmol/L (3.5-5.5); Triiodothyronine, Free 0.95 pg/mL (2.18-3.98)
--- NOTE | 2018-09-11 06:47 | NUR ---
NOC SHIFT SUMMARY PT PLEASANT AND COOPERATIVE WITH CARE. HE DOES REMAIN TO BE A BIT CONFUSED. SLEPT MOST OF NIGHT. VSS. NO ACUTE CHANGES NOTED. APPEARS IN NO ACUTE DISTRESS. WILL CONTINUE TO MONITOR.
--- NOTE | 2018-09-11 16:31 | NUR ---
PATIENT D/C'D TO HOME VIA W/C TRANSPORT. [facility] D/C PAPER WORK FAXED BY EDITOR MANAGING NEWSPAPER. PATIENT DENIES ANY QUESTIONS OR CONCERNS.
--- NOTE | 2018-09-11 16:41 | NUR ---
Initial Palliative Care Consult: Pt was seen by palliative care today. History of CKD, BPH, dementia, hypothyroid, recurrent UTIs, anemia. Alert, oriented to situation. He is able to tell me that he lives at [facility] and he would like to go home now. He is able to tell me the month and current president. Pt does not have any pain complaints. Denies anxiety, but he is anxious to get home, he states. Denies nausea, dyspnea. I did ask him about a hospice service, as he is getting more frail. I explained that he would be able to stay in his home at [facility] and NOT return to the hospital. I also gave him the choice to keep returning to the hospital and he states that he wants to do that and pursue treatment. I did not have much time with him because he got a little grumpy answering my questions and I did wake him from a nap to talk to him. Spoke with Dr. Rush. He has seen the patient. Reviewed with nurse. She states that pt needs assistance with ambulation and only ambulates to get to the restroom. He also has used the commode. Uses walker. He is incontinent of urine. Able to feed himself, however, Shahla, nurse, reports that she has to cue him to begin eating. Pt may qualify for hospice. KPS 40% severe disease at baseline, limited ablility to perform ADLs PPS 50% severe disease at baseline, limited ADLs FAST 6e - moderately severe dementia Pt high risk for readmission. He has had increased ER visits and admissions. May consider calling [facility] to discuss pt's baseline, and contacting family if pt appears more confused to discuss next steps. Pt does have POLST on file, it indicates comfort measures only.
== END 2018-09-11 16:33 | disposition home or self-care (01) ==
LOC: ER 17:41 → MEDS 17:42 → ER 20:24 → MEDS 20:24 → ENPENDDIS 09-11 15:54 → MEDS 09-11 16:33
PROVIDERS: Emergency Medicine; Internal Medicine; Nurse Practitioner Acute Care; ADMIT Internal Medicine
DX: N39.0 Urinary tract infection, site not specified (principal); B96.5 Pseudomonas (aeruginosa) (mallei) (pseudomallei) as the cause of diseases classified elsewhere; G92 Toxic encephalopathy; N17.9 Acute kidney failure, unspecified; N18.4 Chronic kidney disease, stage 4 (severe); D63.1 Anemia in chronic kidney disease; E86.0 Dehydration; F03.90 Unspecified dementia, unspecified severity, without behavioral disturbance, psychotic disturbance, mood disturbance, and anxiety; E87.1 Hypo-osmolality and hyponatremia; E43 Unspecified severe protein-calorie malnutrition; E03.9 Hypothyroidism, unspecified; Z66 Do not resuscitate; N40.0 Benign prostatic hyperplasia without lower urinary tract symptoms; Z79.899 Other long term (current) drug therapy
CPT/HCPCS: 36415; 51701; 70450; 71045; 80048; 80053; 81001; 82550; 82570; 82947; 83735; 84300; 84439; 84481; 84484; 85007; 85025; 85027; 87086; 93005; 93010; 96361-59; 96365-59; 96375-59; 97162; 97165; 97530; 97535; 99285-25; J0713; J1650; J2405; J7030; J7120

== ENCOUNTER 2018-10-18 15:58 | Emergency (ER) | payer OTHER ==
[~2018-10-18] VITALS: Ht 180.3 cm; Wt 49.0 kg
[~2018-10-18 15:58] MED LIST changes: +ACET325 PO; +BISA10S PR; +CIPR500 PO; +CVS DISPOSABLE399 ML PR; +DRON5 PO; +LEVSOD50 PO; +Loperamide2 MG PO; +Milk Of Ma400 MG/5 M PO; +TAMS.4ER PO; +TUMS500 MG PO
[2018-10-18 16:43] LABS: BASOPHILS ABSOLUTE AUTO 0.02 K/mm3 (0.00-0.23); BASOPHILS PERCENT AUTO 0 % (0-2); EOSINOPHILS ABSOLUTE AUTO 0.04 K/mm3 (0.00-0.68); EOSINOPHILS PERCENT AUTO 0 % (0-6); Hematocrit 30.7 % (37.0-53.0); Hemoglobin 10.1 g/dL (13.5-17.5); IMMATURE GRAN ABSOLUTE AUTO 0.09 K/mm3 (0.00-0.10); IMMATURE GRAN PERCENT AUTO 1 % (0-1); LYMPHOCYTES ABSOLUTE AUTO 0.92 K/mm3 (0.84-5.20); LYMPHOCYTES PERCENT AUTO 10 % (21-46); MONOCYTES ABSOLUTE AUTO 0.53 K/mm3 (0.16-1.47); MONOCYTES PERCENT AUTO 6 % (4-13); Mean Corpuscular HGB 29.6 pg (26.0-34.0); Mean Corpuscular HGB Conc 32.9 g/dL (31.5-36.5); Mean Corpuscular Volume 90 fL (80-100); Mean Platelet Volume 8.5 fL (9.1-12.4); NEUTROPHILS ABSOLUTE AUTO 8.09 K/mm3 (1.96-9.15); NEUTROPHILS PERCENT AUTO 84 % (41-73); Platelet Count 176 K/mm3 (150-400); RDW Coefficient Variation 14.6 % (11.7-14.2); RDW Standard Deviation 47.9 fL (35.1-46.3); Red Blood Cell Count 3.41 M/mm3 (4.30-5.90); White Blood Cell Count 9.69 K/mm3 (4.00-11.30)
[2018-10-18 17:00] LABS: Alanine Aminotransfer (ALT/SGP 9 U/L (12-78); Albumin, Blood 2.5 g/dL (3.4-5.0); Albumin/Globulin Ratio 0.5 (0.8-1.8); Alk Phos 76 U/L (50-136); Anion Gap 10 mmol/L (6-16); Aspartate Aminotrans (AST/SGOT 15 U/L (12-37); Bilirubin, Total 0.4 mg/dL (0.1-1.0); Blood Urea Nitrogen 72 mg/dL (8-24); Bun/Creatinine Ratio 18.5 (12.0-20.0); CO2, Blood 23 mmol/L (21-32); Calcium, Blood 8.8 mg/dL (8.5-10.1); Chloride, Blood 98 mmol/L (98-108); Creatinine, Blood 3.89 mg/dL (0.60-1.20); Globulin, Blood 4.6 g/dL (2.2-4.0); Glomerular Filtration Rate 16 (60-); Glucose, Blood 136 mg/dL (70-99); Potassium, Blood 4.7 mmol/L (3.5-5.5); Sodium, Blood 131 mmol/L (136-145); Total Protein, Blood 7.1 g/dL (6.4-8.2); Troponin I <0.015 ng/mL (0.000-0.040)
[2018-10-18] MEDS ORDERED: Acetaminophen325 M1 PO (17:03)
[2018-10-18] MEDS ORDERED: TUMS500 MG PO (17:04)
[2018-10-18] MEDS ORDERED: TAMS.4ER PO (17:06)
[2018-10-18 17:36] LABS: Source, Urine Clean Catch
[2018-10-18 17:46] LABS: Bilirubin, Urine Neg (Neg); Blood, Urine 4+ (Neg); Glucose Qualitative, Urine Neg (Neg); Ketones, Urine Neg (Neg); Leukocyte Esterase, Urine 3+ (Neg); Nitrite, Urine Neg (Neg); Protein, Urine 2+ (Neg); Specific Gravity, Urine 1.005 (1.003-1.022); Urobilinogen, Urine NORM (Normal)
[2018-10-18 18:19] LABS: Appearance, Urine Turbid (Clear); Color, Urine Yellow (P-Yellow)
[2018-10-18 18:20] LABS: Bacteria Many /hpf; Red Blood Cells, Urine 0-2 /hpf (0-2); Squamous Epithelial Cells Not Seen /hpf (Few); White Blood Cells, Urine TNTC /hpf (0-5)
[2018-10-18] MEDS ORDERED: CEFP200 PO (18:36)
== END 2018-10-18 19:15 | disposition home or self-care (01) ==
LOC: ER 15:58
PROVIDERS: Physician Assistant
DX: E87.1 Hypo-osmolality and hyponatremia (principal); N17.9 Acute kidney failure, unspecified; N39.0 Urinary tract infection, site not specified; E86.0 Dehydration; R62.7 Adult failure to thrive; D64.9 Anemia, unspecified; I10 Essential (primary) hypertension; Z87.891 Personal history of nicotine dependence
CPT/HCPCS: 36415; 80053; 81001; 84484; 85025; 87086; 99284-25; A9270-GY